=== PATIENT | female | born 1960 | race Hispanic/Latino ===

== ENCOUNTER 2021-02-17 17:38 | Emergency (ER) | payer SELFPAY ==
[~2021-02-17] VITALS: Ht 157.5 cm; Wt 90.7 kg
[~2021-02-17 17:38] MED LIST: ASPIRIN81 MG PO; BENZONATATE100 MG PO; CETIRIZINE HCL10 MG PO; HYDROCHLOROTHIA25 MG PO; LOSARTAN POTAS100 MG PO; NASONEX17 GM; OXYBUTYNIN CHLOR5 MG PO; TOPAMAX25 MG PO
== END 2021-02-17 18:41 | disposition home or self-care (01) ==
LOC: ER 18:04
DX: H11.31 Conjunctival hemorrhage, right eye (principal); I10 Essential (primary) hypertension
CPT/HCPCS: 99283

== ENCOUNTER 2022-07-15 15:20 | Emergency (ER) | payer MEDICARE ==
[~2022-07-15] VITALS: Ht 157.5 cm; Wt 90.7 kg
[2022-07-15] MEDS ORDERED: TRAMADOL HCL 50 MG TAB PO ONE (16:15)
[2022-07-15 18:24] VITALS: BP 142/76
== END 2022-07-15 18:22 | disposition home or self-care (01) ==
LOC: ER 15:30
DX: S00.83XA Contusion of other part of head, initial encounter (principal); M25.551 Pain in right hip; M25.562 Pain in left knee; W10.8XXA Fall (on) (from) other stairs and steps, initial encounter; Y93.01 Activity, walking, marching and hiking; Y92.89 Other specified places as the place of occurrence of the external cause; I10 Essential (primary) hypertension; E11.9 Type 2 diabetes mellitus without complications; E78.5 Hyperlipidemia, unspecified; F32.A Depression, unspecified
CPT/HCPCS: 70450; 72125; 99283

== ENCOUNTER → 2024-11-05 | Outpatient (REF) | payer MEDICARE | LOC: MAMMO 09:11 | PROVIDERS: ATTEND Internal Medicine | DX: Z12.31 Encounter for screening mammogram for malignant neoplasm of breast (principal); Z13.820 Encounter for screening for osteoporosis | CPT/HCPCS: 77067; 77080 ==